=== PATIENT | female | born 1990 ===

== ENCOUNTER 2021-08-23 07:10 | Inpatient (IN) | payer SELFPAY ==
[2021-08-23] MEDS ORDERED: LACTATED RINGERS 1,000 ML IV SCH (12:30)
[2021-08-23] MEDS ORDERED: ONDANSETRON 4 MG/2 ML INJ IV PRN (13:00)
[2021-08-23] MEDS ORDERED: CARBOPROST TROMETHAMINE 250 MCG/1 ML INJ IM PRN (13:00)
[2021-08-23] MEDS ORDERED: OXYTOCIN 10 UNIT/1 ML INJ IM PRN (13:00)
[2021-08-23] MEDS ORDERED: LIDOCAINE (2%) 20 MG/1 ML VIAL 20 ML MDV INFILTRATI SCH (13:00)
[2021-08-23] MEDS ORDERED: miSOPROStol 200 MCG TAB PR PRN (13:00)
[2021-08-23] MEDS ORDERED: ACETAMINOPHEN 325 MG TAB PO PRN (13:00)
[2021-08-23] MEDS ORDERED: BUTORPHANOL 2 MG/1 ML INJ IV PRN ×2 (13:00)
[2021-08-23] MEDS ORDERED: AMPICILLIN/NS 2 GM/100 ML 2 GM/100 ML BAG IV SCH (13:00)
[2021-08-23] MEDS ORDERED: OXYTOCIN DRIP 30 UNITS/500 ML BAG IV SCH ×2 (13:00)
[2021-08-23] MEDS ORDERED: MINERAL OIL 30 ML ORAL LIQD PO PRN (13:00)
[2021-08-23] MEDS ORDERED: LOPERAMIDE 2 MG CAP PO PRN (13:00)
[2021-08-23] MEDS ORDERED: NALOXONE 0.4 MG/1 ML INJ IV PRN (13:00)
[2021-08-23] MEDS ORDERED: TERBUTALINE 1 MG/1 ML INJ SUB-Q PRN (13:00)
[2021-08-23] MEDS ORDERED: ePHEDrine SULFATE 50 MG/1 ML INJ IV PRN (13:00)
[2021-08-23] MEDS ORDERED: METHYLERGONOVINE MALEATE 0.2 MG/ML VIAL IM PRN (13:00)
[2021-08-23] MEDS ORDERED: fentaNYL 100 MCG/2 ML INJ ONE (13:28)
[2021-08-23] MEDS ORDERED: fentaNYL 100 MCG/2 ML INJ IV ONE (13:30)
[2021-08-23] MEDS ORDERED: PROMETHAZINE 25 MG TAB PO PRN (13:44)
[2021-08-23] MEDS ORDERED: HYDROcodone/ACETAMINOPHEN 5-325 MG TAB PO PRN (13:44)
[2021-08-23] MEDS ORDERED: LANOLIN/ZINC/DIMETHICONE (LANSINOH) 7 GM TP PRN (13:44)
[2021-08-23] MEDS ORDERED: diphenhydrAMINE 25 MG CAP PO PRN (13:44)
[2021-08-23] MEDS ORDERED: MAGNESIUM HYDROXIDE (MOM) ORAL LIQD UDC PO PRN (13:44)
[2021-08-23] MEDS ORDERED: WITCH HAZEL/ GLYCERIN PAD TP PRN (13:44)
--- NOTE | 2021-08-23 13:51 | History and Physical Report ---
History of Present Illness Date of examination: 08/23/21 Date of admission: 08/23/2021 Chief complaint: Labor Pains and My Water Broke History of present illness: Care at [facility]; Records Unavailable. States course was complicated by bleeding at 20 weeks which self-resolved and a UTI. Past History Past Medical History: no pertinent history Past Surgical History: no surgical history Family/Genetic History: none Social history: no significant social history, single - Obstetrical History Expected Date of Delivery: 09/13/21 Actual Gestation: 37 Week(s) 0 Day(s) : 2 Para: 1 Hx # Term Pregnancies: 1 Number of Living Children: 1 #1 Infant Gender: Male year: Birthweight: 2.5 kg Method of Delivery: Vaginal Complications: none Medications and Allergies Allergies Allergy/AdvReac Type Severity Reaction Status Date / Time No Known Allergies Allergy Unverified 08/23/21 07:56 Active Meds: Active Medications Acetaminophen (Acetaminophen 325 Mg Tab) 650 mg PO Q4H PRN PRN Reason: Pain, Mild (1-3) Butorphanol Tartrate (Butorphanol 2 Mg/1 Ml Inj) 1 mg IV Q2H PRN PRN Reason: Pain, Moderate(4-6) LABOR PAIN Butorphanol Tartrate (Butorphanol 2 Mg/1 Ml Inj) 2 mg IV Q2H PRN PRN Reason: Pain , Severe (7-10) Carboprost Tromethamine (Carboprost Tromethamine 250 Mcg/1 Ml Inj) 250 mcg IM ONCE PRN PRN Reason: Uterine Bleeding Ephedrine Sulfate (Ephedrine Sulfate 50 Mg/1 Ml Inj) 10 mg IV Q2M PRN PRN Reason: Hypotension Fentanyl (Fentanyl 100 Mcg/2 Ml Inj) 100 mcg IV ONCE ONE Stop: 08/23/21 13:31 Oxytocin/Sodium Chloride (Pitocin/Ns 30 Unit/500ml) 30 units in 500 mls @ 2 mls/hr IV TITR KING; Protocol Lactated Ringer's (Lactated Ringers) 1,000 mls @ 125 mls/hr IV DIRECT KING Oxytocin/Sodium Chloride (Pitocin/Ns 30 Unit/500ml) 30 units in 500 mls @ 40 mls/hr IV TITR KING; Protocol Ampicillin Sodium (Ampicillin/Ns 2 Gm/100 Ml) 2 gm in 100 mls @ 100 mls/hr IV ONCE@1300 KING; Protocol Stop: 08/23/21 17:00 Ampicillin Sodium (Ampicillin/Ns 1 Gm/50 Ml) 1 gm in 50 mls @ 100 mls/hr IV Q4H KING; Protocol Lidocaine (Lidocaine (2%) 20 Mg/1 Ml Vial 20 Ml Mdv) 20 ml INFILTRATI ONCE@1300 KING Stop: 08/24/21 12:59 Loperamide HCl (Loperamide 2 Mg Cap) 2 mg PO ONCE PRN PRN Reason: give with Hemabate Methylergonovine Maleate (Methylergonovine Maleate 0.2 Mg/Ml Vial) 0.2 mg IM ONCE PRN PRN Reason: Uterine Bleeding Mineral Oil (Mineral Oil 30 Ml Oral Liqd) 30 ml PO QHS PRN PRN Reason: Constipation Misoprostol (Misoprostol 200 Mcg Tab) 800 mcg AK ONCE PRN PRN Reason: Uterine Bleeding Naloxone HCl (Naloxone 0.4 Mg/1 Ml Inj) 0.1 mg IV Q2MIN PRN PRN Reason: Res Rate </= 8 or 02 SAT < 92% Ondansetron HCl (Ondansetron 4 Mg/2 Ml Inj) 4 mg IV Q8H PRN PRN Reason: Nausea And Vomiting Oxytocin (Oxytocin 10 Unit/1 Ml Inj) 10 unit IM ONCE PRN PRN Reason: Uterine Bleeding Terbutaline Sulfate (Terbutaline 1 Mg/1 Ml Inj) 0.25 mg SUB-Q ONCE PRN PRN Reason: Hyperstimulation/Hypertonicity Review of Systems All systems: negative - Vital Signs Vital signs: Vital Signs Pulse BP 93 H 112/61 08/23/21 07:55 08/23/21 07:55 Temp Pulse Resp BP Pulse Ox 81 130/56 08/23/21 13:25 08/23/21 13:25 - Physical Exam Breasts: Positive: normal Cardiovascular: Regular rate Lungs: Positive: Clear to auscultation, Normal air movement Abdomen: Positive: normal appearance, soft, normal bowel sounds Genitourinary (Female): Positive: normal external genitalia, normal perenium Vagina: Positive: normal moisture Uterus: Positive: enlarged - Obstetrical FHR: category 1 Uterine Contraction Monitor Mode: External Cervical Dilatation: 8 (leaking a small amount of clear fluid) Cervical Effacement Percentage: 90 station: -1 Uterine Contraction Pattern: Regular Uterine Tone Measurement Phase: Resting Uterine Contraction Intensity: Moderate Results Abnormal lab results 08/23/21 Range/Units 08:10 Membranes Rupture Positive A (Negative) All other labs normal. Assessment and Plan A: IUP @ 37 Weeks Category I Tracing SROM/Active Labor GBS Unknown P: Admit to L&D Per Routine Orders Records Requested x 3 GBS Prophylaxis Anticipate
--- NOTE | 2021-08-23 13:59 | Procedure Note ---
OB Delivery Note - Delivery Date of Delivery: 08/23/21 (1306) Surgeon: MALIK LEY Estimated blood loss: 300cc - Vaginal Delivery presentation: vertex Delivery position: OA Intrapartum events: none Delivery induction: none Delivery monitor: external FHT, external uterine Route of delivery: Delivery placenta: spontaneous Delivery cord: true knot, 3 umbilical vessels Episiotomy: none Delivery laceration: 1st degree Delivery repair: vicryl Anesthesia: local Delivery comments: of a live 7'8 male infant over a 1st degree left labial laceration without pain control with Apgars of 8 and 9 at 1306 on 08/23/2021. directly to maternal abd/chest, skin to skin contact. Spontaneous delivery of placenta complete and intact with Bucio side presenting at 1315. Cord found to have a true knot. Fundus is firm and midline located 4 below the U. Lochia scant. Delayed cord clamping and cutting; Cord cut by the Father of the Baby. Labial laceration repaired with 2-[address]-1 under local 2% Lidocaine. 800mcg of Cytotec placed per rectum. Cord blood collected. Placenta discarded. - A at 1 minute: 8 at 5 minutes: 9 Gender: Male (7'8)
[2021-08-23 14:03] LABS: Hematocrit 34.5 % (30.3-42.9); Hemoglobin 11.2 gm/dl (10.1-14.3); Mean Corpuscular HGB Conc 33 % (30-34); Mean Corpuscular Volume 89 fl (79-97); Platelet Count 178 K/mm3 (140-440); Red Blood Count 3.87 M/mm3 (3.65-5.03); Red Cell Distribution Width 13.7 % (13.2-15.2)
[2021-08-23] MEDS ORDERED: AMPICILLIN/NS 1 GM/50 ML 1 GM/50 ML BAG IV SCH (17:00)
[2021-08-23] MEDS: IBUPROFEN 800 MG TAB PO SCH ×2 (18:45→23:11)
[2021-08-23 19:05] LABS: Basophils % (Auto) 0.2 % (0.0-1.8); Hematocrit 33.8 % (30.3-42.9); Hemoglobin 11.2 gm/dl (10.1-14.3); Lymphocytes # (Auto) 1.2 K/mm3 (1.2-5.4); Lymphocytes % (Auto) 7.7 % (13.4-35.0); Mean Corpuscular HGB Conc 33 % (30-34); Mean Corpuscular Volume 88 fl (79-97); Monocytes # (Auto) 0.6 K/mm3 (0.0-0.8); Platelet Count 202 K/mm3 (140-440); Red Blood Count 3.86 M/mm3 (3.65-5.03); Red Cell Distribution Width 13.5 % (13.2-15.2)
[2021-08-24 02:20] LABS: Hematocrit 30.4 % (30.3-42.9)
[2021-08-24] MEDS: IBUPROFEN 800 MG TAB PO SCH ×2 (05:14→11:15)
[2021-08-24] MEDS: PRENATAL VIT27-FE FUMARATE-FOLIC ACID VIT TAB PO SCH (11:14)
--- NOTE | 2021-08-24 11:15 | Progress Note ---
Assessment and Plan A: S/P p: Continue rouitne pp orders D/C home tomm if stable Subjective - Subjective Date of service: 08/24/21 Principal diagnosis: S/P Patient reports: appetite normal, voiding normally, pain well controlled, ambulating normally Downs: doing well, bottle feeding Objective - Vital Signs Latest vital signs: Vital Signs Temp Pulse Resp BP BP Pulse Ox Pulse Ox 08/24/21 08:22 98.6 F 90 18 105/66 96 08/24/21 05:13 98 08/24/21 03:59 98 08/24/21 01:40 98 08/24/21 00:15 98.6 F 75 20 126/67 97 08/23/21 23:09 97 08/23/21 21:25 98 08/23/21 21:02 98.9 F 90 18 106/54 97 08/23/21 20:00 98 08/23/21 18:00 100 08/23/21 16:33 99.1 F 75 18 119/61 96 08/23/21 15:20 99.0 F 82 20 120/71 100 100 08/23/21 14:32 88 98/49 08/23/21 14:02 101 H 110/52 08/23/21 13:47 88 99/53 08/23/21 13:25 81 130/56 08/23/21 13:17 87 98/54 08/23/21 12:30 100 Intake and Output 08/23/21 08/24/21 08/24/21 22:59 06:59 14:59 Intake Total 960 240 120 Output Total 500 600 Balance 460 -360 120 Intake: Oral 360 240 120 Intake, Free Water 600 Output: Urine 500 600 Void 500 600 Other: Total, Intake Amount 120 120 120 Total, Output Amount 500 600 # Voids Void 1 1 - Exam Breasts: Present: normal Abdomen: Present: normal appearance, soft, normal bowel sounds Vulva: both: normal Uterus: Present: normal, firm, fundal height below umbilicus Extremities: Present: normal Incision: Present: normal, dry, intact - Labs Labs: Abnormal lab results 08/23/21 Range/Units 18:23 WBC 15.1 H (4.5-11.0) K/mm3 Lymph % (Auto) 7.7 L (13.4-35.0) % Seg Neutrophils % 88.1 H (40.0-70.0) % Seg Neutrophils # 13.3 H (1.8-7.7) K/mm3
--- NOTE | 2021-08-24 11:19 | Discharge Summary ---
Providers - Providers Date of Admission: 08/23/21 13:44 Date of discharge: 08/25/21 Attending physician: CHRISTIANNE FERNANDO MD Primary care physician: CHRISTIANNE FERNANDO MD Hospitalization Reason for admission: active labor, IUP at term Delivery: Episiotomy: none Laceration: 1st degree, 2nd degree Incision: normal, intact Other procedures: none complications: none Discharge diagnosis: IUP at term delivered [place] baby: male Hospital course: Pt presented to [facility] in active labor. She had a w/o pp complications. See H&P, delivery summary, and pp notes. Condition at discharge: Stable Disposition: HOME / SELF CARE / HOMELESS Plan - Discharge Medications Prescriptions: Ibuprofen [Motrin 800 MG tab] 800 mg PO Q6H PRN #30 tablet PRN Reason: Pain, Mild (1-3) - Provider Discharge Summary Activity: routine, no sex for 6 weeks, no heavy lifting 4 weeks, no strenuous exercise Diet: other Instructions: routine Additional instructions: [] Smoking cessation referral if applicable(refer to patient education folder for contact #) [] Refer to [facility]'s [facility] Booklet Call your doctor immediately for: * Fever > 100.5 * Heavy vaginal bleeding ( >1 pad per hour) * Severe persistent headache * Shortness of breath * Reddened, hot, painful area to leg or breast * Drainage or odor from incision. * Keep incision clean and dry at all times and follow doctor's instructions regarding bathing/showering - Follow up plan Follow up: CHRISTIANNE FERNANDO MD [Primary Care Provider] - 6 Weeks
[2021-08-25] MEDS: IBUPROFEN 800 MG TAB PO SCH ×2 (03:57→10:19)
[2021-08-25] MEDS: PRENATAL VIT27-FE FUMARATE-FOLIC ACID VIT TAB PO SCH (10:19)
[2021-08-25 12:22] VITALS: BP 115/74
== END 2021-08-25 14:15 | disposition home or self-care (01) | DRG 807 ==
LOC: TRG 07:10 → APU 07:13 → LD 11:12 → TRG 13:53 → OB 15:08
PROVIDERS: ADMIT Obstetrics & Gynecology; ATTEND Obstetrics & Gynecology
PROC: 10E0XZZ Delivery of Products of Conception, External Approach (ICD-10-PCS; principal; 2021-08-23)
PROC: 0HQ9XZZ Repair Perineum Skin, External Approach (ICD-10-PCS; 2021-08-23)
DX: O69.2XX0 Labor and delivery complicated by other cord entanglement, with compression, not applicable or unspecified (principal); Z37.0 Single live birth; Z3A.37 37 weeks gestation of pregnancy; Z20.822 Contact with and (suspected) exposure to COVID-19; O70.0 First degree perineal laceration during delivery
CPT/HCPCS: 36415; 84112; 85014; 85018; 85025; 85027; 86592; 86706; 86762; 86850; 86900; 86901; 87806; 99211; G0378; G0463; J0290; J2590; U0003